=== PATIENT | female | born 1955 | race Caucasian/White ===

== ENCOUNTER 2019-05-10 16:17 | Observation (INO) | payer MEDICARE, MEDICAID ==
[2019-05-10] MEDS ORDERED: NITROGLYCERIN 0.4MG SL TABLET #25 BTL SL PRN ×2 (16:31→18:34)
[2019-05-10] MEDS ORDERED: ASPIRIN 81 MG CHEWABLE TABLET PO ONE (16:31)
[2019-05-10] MEDS ORDERED: 0.9 % SODIUM CHLORIDE 1,000 ML BAG IV ONE (16:50)
[2019-05-10] MEDS ORDERED: ONDANSETRON HCL IV 4 MG/2 ML VIAL IVP ONE (16:50)
[2019-05-10 16:57] LABS: ABSOLUTE NEUTROPHIL COUNT 3.76; BASO % 0.4 % (0-6); GRAN % 48.9 % (47-80); HEMATOCRIT 45.9 % (35.0-47.0); HEMOGLOBIN 14.6 gm/dl (11.6-16.0); LYMPH % 38.6 % (16-45); MEAN CELL VOLUME 89.5 fl (81-97); MEAN CORPUSCULAR HEMOGLOBIN 28.5 pg (27-33); MEAN CORPUSCULAR HGB CONC 31.8 g/dl (32-36); MEAN PLATELET VOLUME 9.5 fl (7.4-10.4); MONO % 10.1 % (0-9); PLATELET COUNT 300 K/uL (130-400); RED BLOOD COUNT 5.13 M/uL (3.80-5.40); RED CELL DISTRIBUTION WIDTH 14.9 % (11.5-14.5); WHITE BLOOD COUNT W/O DIFF 7.7 K/uL (4.2-12.2)
[2019-05-10 17:10] LABS: BLOOD UREA NITROGEN 12 mg/dL (8-23)
[2019-05-10 17:11] LABS: CREATININE 0.6 mg/dL (0.5-0.9); EST GLOMERULAR FILTRATION RATE > 60 mL/min
[2019-05-10 17:13] LABS: GLUCOSE,RANDOM 254 mg/dL (74-109)
[2019-05-10 17:16] LABS: CREATINE PHOSPHOKINASE 27 U/L (26-192)
[2019-05-10 17:18] LABS: CKMB < 1.0 ng/mL (<3.77)
--- NOTE | 2019-05-10 17:20 | Emergency Department Record ---
History of Present Illness - General Chief Complaint: Chest Pain Stated Complaint: CHEST PAINS Time Seen by Provider: 05/10/19 16:31 Source: Patient Mode of Arrival: Ambulatory Limitations: No limitations - History of Present Illness Initial Comments: pt has had intermittent cp since yesterday. she has an ache and then gets sharp pains that last 1 minute. she has nausea and sob. the has pain radiating down her l arm and her hand feels tingly. her brother with a heart attack. she has htn and hi chol. MD Complaint: Chest pain Onset/Timin -: Days(s) Pain Location: Left chest Pain Radiation: LUE, Back, Neck Severity: Moderate Severity scale (1-10): 7 Quality: Aching Consistency: Constant, Intermittent Improves With: Nothing Worsens With: Nothing Anginal Symptoms: Dyspnea, Nausea Treatments Prior to Arrival: None - Related Data Home Medications Medication Instructions Recorded Confirmed Last Taken Beclomethasone Dipropionate [Qvar] 8.7 gm IH DAILY 05/10/19 05/10/19 05/10/19 Clopidogrel Bisulfate [Clopidogrel] 75 mg PO DAILY 05/10/19 05/10/19 05/10/19 Dapagliflozin Propanediol [Farxiga] 5 mg PO DAILY 05/10/19 05/10/19 05/10/19 Gabapentin [Neurontin] 100 mg PO BID 05/10/19 05/10/19 05/10/19 Glipizide [Glipizide ER] 5 mg PO TID 05/10/19 05/10/19 05/10/19 Loratadine 10 mg PO DAILY 05/10/19 05/10/19 Unknown Metformin HCl 850 mg PO TID 05/10/19 05/10/19 05/10/19 Metoprolol Succinate 25 mg PO DAILY 05/10/19 05/10/19 05/10/19 Naproxen 375 mg PO BID 05/10/19 05/10/19 Unknown Omeprazole 20 mg PO DAILY 05/10/19 05/10/19 05/09/19 Simvastatin 40 mg PO DAILY 05/10/19 05/10/19 05/09/19 Allergies Allergy/AdvReac Type Severity Reaction Status Date / Time codeine AdvReac VOMITING Verified 05/10/19 16:26 hydromorphone [From Dilaudid] AdvReac VOMITING Verified 05/10/19 16:26 morphine AdvReac VOMITING Verified 05/10/19 16:26 Travel Screening - Travel/Exposure Within Last 30 Days Have you traveled within the last 30 days?: No Review of Systems Reviewed: No additional complaints except as noted below Constitutional: Reports: As per HPI. Denies: Chills, Fever, Malaise, Night sweats, Weakness, Weight change Eyes: Reports: As per HPI. Denies: Eye discharge, Eye pain, Photophobia, Vision change ENT: Reports: As per HPI. Denies: Congestion, Dental pain, Ear pain, Epistaxis, Hearing loss, Throat pain Respiratory: Reports: As per HPI, Dyspnea. Denies: Cough, Hemoptysis, Stridor, Wheezes Cardiovascular: Reports: As per HPI, Chest pain. Denies: Arrhythmia, Dyspnea on exertion, Edema, Murmurs, Orthopnea, Palpitations, Paroxysmal nocturnal dyspnea, Rheumatic Fever, Syncope Endocrine: Reports: As per HPI. Denies: Fatigue, Heat or cold intolerance, Polydipsia, Polyuria Gastrointestinal: Reports: As per HPI, Nausea. Denies: Abdominal pain, Constipation, Diarrhea, Hematemesis, Hematochezia, Melena, Vomiting Genitourinary: Reports: As per HPI. Denies: Abnormal menses, Discharge, D yspareunia, Dysuria, Frequency, Hematuria, Incontinence, Retention, Urgency Musculoskeletal: Reports: As per HPI. Denies: Arthralgia, Back pain, Gout, Joint swelling, Myalgia, Neck pain Skin: Reports: As per HPI. Denies: Bruising, Change in color, Change in hair/nails, Lesions, Pruritus, Rash Neurological: Reports: As per HPI. Denies: Abnormal gait, Confusion, Headache, Numbness, Paresthesias, Seizure, Tingling, Tremors, Vertigo, Weakness Psychiatric: Reports: As per HPI. Denies: Anxiety, Auditory hallucinations, Depression, Homicidal thoughts, Suicidal thoughts, Visual hallucinations Hematological/Lymphatic: Reports: As per HPI. Denies: Anemia, Blood Clots, Easy bleeding, Easy bruising, Swollen glands Past Medical History - SOCIAL HISTORY Smoking Status: Never smoker Alcohol Use: None Drug Use: None - RESPIRATORY Hx Respiratory Disorders: Yes Hx COPD: Yes - CARDIOVASCULAR Hx Cardio Disorders: Yes Hx Deep Vein Thrombosis: Yes Hx Hypertension: Yes Comment:: high cholesterol - NEURO Hx Neuro Disorders: No Hx TIA: Yes - GI Hx GI Disorders: Yes Hx Reflux: Yes - Hx Genitourinary Disorders: No - ENDOCRINE Hx Endocrine Disorders: Yes Hx Diabetes: Yes Hx Thyroid Disease: Yes - MUSCULOSKELETAL Hx Musculoskeletal Disorders: No - PSYCH Hx Psych Problems: No - HEMATOLOGY/ONCOLOGY Hx Hematology/Oncology Disorders: No Family Medical History Any Significant Family History?: No Physical Exam - General General Appearance: Alert, Oriented x3, Cooperative, Mild distress - Head Head exam: Normal inspection - Eye Eye exam: Normal appearance, PERRL, EOMI Pupils: Normal accommodation - ENT ENT exam: Normal exam, Mucous membranes moist, Normal external ear exam, Normal orophraynx Ear exam: Normal external inspection. negative: External canal tenderness Nasal Exam: Normal inspection. negative: Discharge, Sinus tenderness Mouth exam: Normal external inspection, Tongue normal Teeth exam: Normal inspection. negative: Dental caries Throat exam: Normal inspection. negative: Tonsillar erythema, Tonsillar exudate - Neck Neck exam: Normal inspection, Full ROM. negative: Tenderness - Respiratory Respiratory exam: Normal lung sounds bilaterally. negative: Respiratory distress - Cardiovascular Cardiovascular Exam: Regular rate, Normal rhythm, Normal heart sounds - GI/Abdominal GI/Abdominal exam: Soft, Normal bowel sounds. negative: Tenderness - Rectal Rectal exam: Deferred - exam: Deferred - Extremities Extremities exam: Normal inspection, Full ROM, Normal capillary refill. negative: Tenderness - Back Back exam: Reports: Normal inspection, Full ROM. 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 ] Respiratory 20 20 Rate Blood Pressure 160/87 Blood Pressure 107/52 [Left Arm] Pulse Ox 93 L 93 L - Reevaluation(s) Reevaluation #1: 05/10/19 17:53 ntg made pain better Medical Decision Making - Lab Data Result diagrams: 05/10/19 16:30 05/10/19 16:30 Lab Results 05/10/19 05/10/19 Range/Units 16:30 16:30 WBC 7.7 (4.2-12.2) K/uL RBC 5.13 (3.80-5.40) M/uL Hgb 14.6 (11.6-16.0) gm/dl Hct 45.9 (35.0-47.0) % MCV 89.5 (81-97) fl MCH 28.5 (27-33) pg MCHC 31.8 L (32-36) g/dl RDW 14.9 H (11.5-14.5) % Plt Count 300 (130-400) K/uL MPV 9.5 (7.4-10.4) fl Gran % 48.9 (47-80) % Lymphocytes % 38.6 (16-45) % Monocytes % 10.1 H (0-9) % Eosinophils % 2.0 (0-6) % Basophils % 0.4 (0-6) % Absolute Neutrophils 3.76 D-Dimer 0.27 (0-0.59) mg/L FEU Disposition Disposition: Admit Clinical Impression: Chest pain Qualifiers: Chest pain type: unspecified Qualified Code(s): R07.9 - Chest pain, unspecified Disposition: Still a Patient at [facility] [place] Decision to Admit: Admit from ER Decision to Admit Date: 05/10/19 Decision to Admit Time: 17:54 Quality - Quality Measures Quality Measures: N/A - Blood Pressure Screening Does Patient Have Any of the Following: No Blood Pressure Classification: Pre-Hypertensive BP Reading Systolic Measurement: 160 Diastolic Measurement: 87 Screening for High Blood Pressure: < Pre-Hypertensive BP, F/U Documented > [G8950] Pre-Hypertensive Follow-up Interventions: Follow-up with rescreen every year.
[2019-05-10] MEDS ORDERED: ACETAMINOPHEN 500 MG TABLET PO PRN (18:34)
[2019-05-10] MEDS ORDERED: TEMAZEPAM 15 MG CAPSULE PO PRN (18:34)
[2019-05-10] MEDS ORDERED: NAPROXEN 250 MG TABLET PO PRN (18:51)
--- NOTE | 2019-05-10 21:40 | Discharge Summary ---
Providers Discharge Summary Date: 05/10/19 Date of admission: 05/10/19 18:30 Expected Date of Discharge: 05/10/19 Attending physician: MARGARITO ARDON Physical Exam - Vital Signs Vital Signs: Vital Signs - Last 24 Hrs Temp Pulse Pulse Resp BP BP BP 05/10/19 20:30 98.6 F 84 14 130/64 05/10/19 18:34 85 12 140/57 05/10/19 18:04 82 18 129/68 05/10/19 16:47 97 H 20 107/52 05/10/19 16:22 97.8 F 88 20 160/87 Pulse Ox 05/10/19 20:30 92 L 05/10/19 18:34 98 05/10/19 18:04 96 05/10/19 16:47 93 L 05/10/19 16:22 93 L - General General Appearance: Alert, Oriented x3, Cooperative, Mild distress Limitations: No limitations - Head Head exam: Normal inspection - Eye Eye exam: Normal appearance, PERRL, EOMI Pupils: Normal accommodation - ENT ENT exam: Normal exam, Mucous membranes moist, Normal external ear exam, Normal orophraynx Ear exam: Normal external inspection. negative: External canal tenderness Nasal Exam: Normal inspection. negative: Discharge, Sinus tenderness Mouth exam: Normal external inspection, Tongue normal Teeth exam: Normal inspection. negative: Dental caries Throat exam: Normal inspection. negative: Tonsillar erythema, Tonsillar exudate - Neck Neck exam: Normal inspection, Full ROM. negative: Tenderness - Respiratory Respiratory exam: Normal lung sounds bilaterally. negative: Respiratory distress - Cardiovascular Cardiovascular Exam: Regular rate, Normal rhythm, Normal heart sounds - GI/Abdominal GI/Abdominal exam: Soft, Normal bowel sounds. negative: Tenderness - Rectal Rectal exam: Deferred - exam: Deferred - Extremities Extremities exam: Normal inspection, Full ROM, Normal capillary refill. negative: Tenderness - Back Back exam: Reports: Normal inspection, Full ROM. Denies: Muscle spasm, Rash noted, Tenderness - Neurological Neurological exam: Alert, CN II-XII intact, Normal gait, Oriented X3 - Psychiatric Psychiatric exam: Normal affect, Normal mood - Skin Skin exam: Dry, Intact, Normal color, Warm Hospitalization - Hospitalization Admission Diagnosis: chest pain - Problem List/Discharge Diagnosis (1) Chest pain Current Visit: Yes Status: Acute Discharge Diagnosis: Chest pain type: unspecified Qualified Code(s): R07.9 - Chest pain, unspecified Base Code: R07.9 - CHEST PAIN, UNSPECIFIED Comment: 05/10/19 -pt presented to ER for CP 04/30 radiating to left arm with nausea -given ntg and pain improved to 3/10 -PMH DM with hyperglycemia, HTN, hypertriglcyemia, COPD and her brother from [place] - Dr Azevedo from [facility], awaiting bed placement -pt updated via phone, had opportunity to ask questions - Hospitalization Course Disposition: Acute Care Hospital Transfer Procedures: Imaging and X-Rays 05/10/19 17:17 CXR [CHEST 2 VIEWS] [RAD] Stat Cardiology Procedures 05/10/19 16:27 EKG NOW 05/10/19 16:31 Wheel Roller NOW 05/10/19 18:34 EKG QDX2@0600 Abnormal Labs: Abnormal Lab Results 05/10/19 05/10/19 05/10/19 Range/Units 16:30 16:30 16:30 MCHC 31.8 L (32-36) g/dl RDW 14.9 H (11.5-14.5) % Monocytes % 10.1 H (0-9) % Random Glucose 254 H (74-109) mg/dL Triglycerides 414 H (<150) mg/dL Condition at Discharge: (3) Guarded Discharge Medications - Discharge Medications Home Medications: Ambulatory Orders Acetaminophen [Tylenol 500Mg Tab] 1,000 mg PO Q6H PRN tablet 05/10/19 [Last Taken Unknown] Aspirin Enteric-Coated [Ecotrin (EC)] 325 mg PO DAILY tabec 05/10/19 [Last Taken Unknown] Beclomethasone Dipropionate [Qvar] 8.7 gm IH DAILY 05/10/19 [Last Taken 05/10/19] Clopidogrel Bisulfate [Clopidogrel] 75 mg PO DAILY 05/10/19 [Last Taken 05/10/19] Dapagliflozin Propanediol [Farxiga] 5 mg PO DAILY 05/10/19 [Last Taken 05/10/19] Gabapentin [Neurontin] 100 mg PO BID 05/10/19 [Last Taken 05/10/19] Glipizide [Glipizide ER] 5 mg PO TID 05/10/19 [Last Taken 05/10/19] Loratadine 10 mg PO DAILY 05/10/19 [Last Taken Unknown] Metformin HCl 850 mg PO TID 05/10/19 [Last Taken 05/10/19] Metoprolol Succinate 25 mg PO DAILY 05/10/19 [Last Taken 05/10/19] Naproxen 375 mg PO BID 05/10/19 [Last Taken Unknown] Nitroglycerin 0.4MG [Nitrostat 0.4MG] 0.4 mg SL Q5MIN PRN tab.subl 05/10/19 [Last Taken Unknown] Omeprazole 20 mg PO DAILY 05/10/19 [Last Taken 05/09/19] Simvastatin 40 mg PO DAILY 05/10/19 [Last Taken 05/09/19] Discharge Plan - Discharge Instructions Quality Measures - Quality Measures Quality Measures: Advance Directives, Documentation of Current Medications in Medical Record, Elder Maltreatment Screen and Follow-Up Plan, Screening for High Blood Pressure and F/U Documented - Current Medications Quality Measure: Measure #130: Documentation of Current Medications - Blood Pressure Screening Quality Measure: Screening for High Blood Pressure and Follow-Up Documented Blood Pressure Classification: Pre-Hypertensive BP Reading Systolic Measurement: 160 Diastolic Measurement: 87 Screening for High Blood Pressure: < Pre-Hypertensive BP, F/U Documented > [G8950] - Advance Directives Quality Measure: Measure #47: Care Plan Advance Directives Established: No Advance Directives Information Provided To Patient: No Advance Directives on File: No Living Will: Yes Power of Spice Grinder: No - Elder Abuse Suspicion Index Screening: Elder Abuse Suspicion Index Screening Rely on people for bathing, dressing, shopping, banking, etc: No Prevented from getting food, clothes, medication, etc: No Made to feel shamed or threatened by someone: No Forced to sign papers or use money against will: No Feel afraid, touched in ways not wanted or hurt physically: No Poor eye contact, withdrawn, malnourished, cuts or bruises: No Screening Result: Negative result EASI Reference Information: Nisha LUND, Madonna C, Nicole D, Ramón Bass.Development and validation of a tool to assist physicians identification of elder abuse: The Elder Abuse Suspicion Index (EASI ). Journal of Elder Abuse and Neglect, 2008; 20 (3): 276-300. - Elder Maltreatment Screen Quality Measures: Elder Maltreatment Screen and Follow-Up Plan Elder Maltreatment Screen: <Negative, No Follow-Up Plan Required> [G6284]
[2019-05-10] MEDS ORDERED: GABAPENTIN 100 MG CAPSULE PO SCH (22:00)
[2019-05-10] MEDS ORDERED: GLIPIZIDE XL 5 MG TABLET PO SCH (22:00)
[2019-05-10] MEDS ORDERED: METFORMIN HCL 850 MG PO SCH (22:00)
[2019-05-10] MEDS ORDERED: SIMVASTATIN 20 MG TABLET PO SCH (22:00)
[2019-05-11] MEDS ORDERED: PANTOPRAZOLE SODIUM 40 MG TABLET PO SCH (07:00)
[2019-05-11] MEDS ORDERED: LORATADINE 10 MG TABLET PO SCH (10:00)
[2019-05-11] MEDS ORDERED: ASPIRIN 325 MG TAB ENTERIC-COATED PO SCH (10:00)
[2019-05-11] MEDS ORDERED: METOPROLOL SUCC 25 MG TAB.ER PO SCH (10:00)
[2019-05-11] MEDS ORDERED: BECLOMETHASONE DIPROPIONATE 8.7 GM IH SCH (10:00)
[2019-05-11] MEDS ORDERED: CLOPIDOGREL 75MG TABLET PO SCH (10:00)
[2019-05-11] MEDS ORDERED: DAPAGLIFLOZIN PROPANEDIOL 5 MG PO SCH (10:00)
--- NOTE | 2019-05-12 07:55 | RADIOLOGY REPORT ---
EXAM: CHEST, TWO VIEWS HISTORY: LEFT LATERAL CHEST PAIN FOR ONE DAY. TECHNIQUE: Two views of the chest were obtained. Comparison: None. FINDINGS: The cardiomediastinal silhouette is unremarkable. The lungs appear hyperinflated likely reflecting emphysematous change/COPD. There are coarse interstitial markings probably reflecting fibrosis. No focal consolidation or pleural effusion. IMPRESSION: 1. NO ACUTE PROCESS. 2. PROBABLE COPD. 3. INTERSTITIAL PROMINENCE PROBABLY REFLECTING SCARRING/FIBROSIS. JOB NUMBER: [id number] [facility]
== END 2019-05-10 23:55 | disposition short-term general hospital (02) ==
LOC: ER 16:17 → MEDSURG 18:30
PROVIDERS: ADMIT Internal Medicine; ATTEND Internal Medicine
DX: R07.9 Chest pain, unspecified (principal); R06.02 Shortness of breath; R11.0 Nausea; I10 Essential (primary) hypertension; E11.9 Type 2 diabetes mellitus without complications; J44.9 Chronic obstructive pulmonary disease, unspecified; E03.9 Hypothyroidism, unspecified; E78.00 Pure hypercholesterolemia, unspecified; K21.9 Gastro-esophageal reflux disease without esophagitis; Z86.718 Personal history of other venous thrombosis and embolism; Z86.73 Personal history of transient ischemic attack (TIA), and cerebral infarction without residual deficits
CPT/HCPCS: 36416; 71046; 80048; 80061; 82550; 82553; 82948; 84484; 85025; 85379; 93005; 93010; 96374; 99236; 99285; J2405; J7030